=== PATIENT | female | born 1950 | race Two or more races ===

== ENCOUNTER 2016-07-27 18:26 | Emergency (ER) | payer SELFPAY ==
--- NOTE | 2016-07-27 18:53 | ER Document Report ---
ED Medical Screen (RME) - General Stated Complaint: BACK PAIN,LOST CONTROL OF BLADDER Time seen by provider: 18:51 Mode of Arrival: Wheelchair Information source: Relative - daughter Notes: 65-year-old female with Parkinson's and adrenal fatigue syndrome from [place] who has a history of back pain and recent epidural on 07-22-16 was brought in by her daughter because she needs a Huerta catheter placed because she is not emptying her bladder completely. She is supposed to go back on a plane 07-28-16 and is flying with her daughter back to [place] for emergency back surgery, lumbar decompression. She was walking when she came from [place] and now she has weakness in the legs can't stand can't stand upright constant urge to urinate. Her daughter states that as soon as she gets off the plane tomorrow in [place] she will be taken by ambulance immediately to the emergency room. The frequent urination is pre-existing condition but it is increased to 8 times an hour. No fever. Physical Exam - Vital signs Vitals: Temp Pulse 99.6 F 88 07/27/16 18:44 07/27/16 18:44 Course - Vital Signs Vital signs: Temp Pulse Resp BP Pulse Ox 99.6 F 88 16 135/95 H 95 07/27/16 18:44 07/27/16 18:44 07/27/16 18:58 07/27/16 18:58 07/27/16 18:58
[2016-07-27 19:58] LABS: ABSOLUTE EOSINOPHILS # (AUTO) 0.2 10^3/uL (0.0-0.6); ABSOLUTE LYMPHOCYTES (AUTO) 1.7 10^3/uL (0.5-4.7); ABSOLUTE MONOCYTES (AUTO) 0.7 10^3/uL (0.1-1.4); ABSOLUTE NEUT (AUTO) 5.6 10^3/uL (1.7-8.2); BASOPHILS % (AUTO) 0.5 % (0-2); HEMATOCRIT 41.5 % (36.0-47.0); HEMOGLOBIN 13.7 g/dL (12.0-15.5); HGB HCT DIFFERENCE -0.4; LYMPHOCYTES % (AUTO) 20.6 % (13-45); MEAN CORPUSCULAR HEMOGLOBIN 28.8 pg (27.0-33.4); MEAN CORPUSCULAR VOLUME 87 fl (80-97); MONOCYTES % (AUTO) 8.1 % (3-13); RED BLOOD COUNT 4.75 10^6/uL (3.72-5.28); RED CELL DISTRIBUTION WIDTH 13.9 % (11.5-14.0); SEGMENTED NEUTROPHILS % (AUTO) 68.8 % (42-78); WHITE BLOOD COUNT 8.1 10^3/uL (4.0-10.5)
[2016-07-27 20:04] LABS: APPEARANCE,URINE CLEAR; BILIRUBIN,URINE NEGATIVE (NEGATIVE); GLUCOSE, URINE NEGATIVE (NEGATIVE); KETONES,URINE NEGATIVE (NEGATIVE); LEUKOCYTE ESTERASE,URINE NEGATIVE (NEGATIVE); NITRITE,URINE NEGATIVE (NEGATIVE); PROTEIN,URINE NEGATIVE (NEGATIVE); UROBILINOGEN,URINE NEGATIVE mg/dL (<2.0)
[2016-07-27 20:09] LABS: ALANINE AMINOTRANSFERASE 75 U/L (9-52); ALBUMIN 4.7 g/dL (3.5-5.0); ALKALINE PHOSPHATASE 90 U/L (38-126); ANION GAP 10 (5-19); ASPARTATE AMINO TRANSFERASE 45 U/L (14-36); BILIRUBIN,TOTAL 0.9 mg/dL (0.2-1.3); BLOOD UREA NITROGEN 20 mg/dL (7-20); CALCIUM 9.7 mg/dL (8.4-10.2); CARBON DIOXIDE 26 mmol/L (22-30); CHLORIDE 104 mmol/L (98-107); CREATININE RESULT 0.77 mg/dL (0.52-1.25); GLUCOSE 92 mg/dL (75-110); POTASSIUM 4.9 mmol/L (3.6-5.0); SODIUM 140.4 mmol/L (137-145); TOTAL PROTEIN 7.4 g/dL (6.3-8.2)
[2016-07-27 20:13] LABS: URINE SPECIFIC GRAVITY 1.008
--- NOTE | 2016-07-27 20:28 | ER Document Report ---
ED Neck/Back Problem - General Chief Complaint: Back pain, weakness, loss of bladder Stated Complaint: BACK PAIN,LOST CONTROL OF BLADDER Time seen by provider: 20:26 Mode of Arrival: Wheelchair Information source: Patient, Relative - Daughter TRAVEL OUTSIDE OF THE [place] IN LAST 30 DAYS: Yes COUNTRY TRAVELED TO/FROM: [place] - HPI Patient complains to provider of: Pain, Lower back Onset: Other - Chronic Onset: Chronic Timing: Waxing and waning, Worse Quality of pain: Achy Severity: Moderate Pain Level: 4 Recent injury: No Associated symptoms: Incontinence, Like prior neck/back pain, Numbness/tingling , Radiation to leg Exacerbated by: Movement of trunk Relieved by: Nothing Similar symptoms previously: Yes Recently seen / treated by doctor: No Notes: Patient is a 65-year-old female with a history of osteoarthritis, lumbar discopathy and Parkinson's disease, who presents to the emergency room with her daughter for complaints of worsening low back pain with numbness and tingling sensation below the knees bilaterally and urinary incontinence, patient is visiting from [place], daughter reports that she has made arrangements to have patient fly back to [place] tomorrow and meet with a neurosurgeon for likely lumbar decompression, her only request is that patient have a Huerta catheter placed because of her urinary incontinence and because she will be on 3 separate flights to return home from [place] to [place] tomorrow, patient has no fever, no injury, no nausea or vomiting Past Medical History - General Information source: Relative - daughter - Social History Smoking Status: Never Smoker Family History: Reviewed & Not Pertinent Patient has suicidal ideation: No Patient has homicidal ideation: No Renal/ Medical History: Denies: Hx Peritoneal Dialysis Review of Systems - Review of Systems Constitutional: No symptoms reported EENT: No symptoms reported Cardiovascular: No symptoms reported Respiratory: No symptoms reported Gastrointestinal: No symptoms reported Genitourinary: See HPI Female Genitourinary: No symptoms reported Musculoskeletal: See HPI Skin: No symptoms reported Hematologic/Lymphatic: No symptoms reported Neurological/Psychological: See HPI -: Yes All other systems reviewed and negative Physical Exam - Vital signs Vitals: Temp Pulse 99.6 F 88 07/27/16 18:44 07/27/16 18:44 Interpretation: Normal - General General appearance: Alert In distress: Moderate - Appears in pain - HEENT Head: Normocephalic, Atraumatic Eyes: Normal Pupils: PERRL - Respiratory Respiratory status: No respiratory distress Chest status: Nontender Breath sounds: Normal Chest palpation: Normal - Cardiovascular Rhythm: Regular Heart sounds: Normal auscultation Murmur: No - Abdominal Inspection: Normal Distension: No distension Bowel sounds: Normal Tenderness: Nontender Organomegaly: No organomegaly - Back Back: Tender - Paraspinal lumbar tenderness, also midline tenderness - Extremities General upper extremity: Normal inspection, Nontender, Normal color, Normal ROM , Normal temperature General lower extremity: Normal inspection, Nontender, Normal color, Normal ROM , Normal temperature. No: Zaida's sign Notes: Patient reports decreased sensation to bilateral lower extremities from the knees down, 2+ DP pulses bilaterally - Neurological Neuro grossly intact: Yes Cognition: Normal Orientation: AAOx4 Lonny Coma Scale Eye Opening: Spontaneous Lonny Coma Scale Verbal: Oriented Lonny Coma Scale Motor: Obeys Commands Lonny Coma Scale Total: 15 Speech: Normal Additional motor exam normals: Involuntary movements - Consistent with Parkinson disease - Psychological Associated symptoms: Normal affect, Normal mood - Skin Skin Temperature: Warm Skin Moisture: Dry Skin Color: Normal Course - Re-evaluation Re-evalutation: 07/28/16 05:30 I discussed treatment plan options with patient and daughter at bedside, patient and daughter are adamant that she only came to the emergency room to have a Huerta catheter placed so that she could fly home to [place] in the morning and visit with her neurosurgeon to possibly get a lumbar decompression surgery, I offered to provide patient with medication in the emergency room, as well as talk to a neurosurgeon locally as opposed to having patient placed on 3 flights to return to [place], however patient and daughter were both adamant that given patient's healthcare, and the amount of money that they've spent on flights to [place] tomorrow that they really wish for her to just have the Huerta catheter placed and have her discharged so that she can go home to [place] and get taken care of, I have a lengthy discussion with patient and daughter at bedside, I advised them to return to the nearest emergency room if patient's symptoms should worsen in any way or they desired to get help locally, or if patient is unable to fly to [place] in the morning as planned, a Huerta catheter was placed, patient and daughter were quite appreciative of the care they received in the emergency room, and patient was discharged with instructions to return at any time should she require any further assistance, patient and daughter acknowledge understanding and agreement with this plan - Vital Signs Vital signs: Temp Pulse Resp BP Pulse Ox 98.0 F 86 18 140/90 H 91 L 07/27/16 18:47 07/27/16 20:49 07/27/16 20:43 07/27/16 20:51 07/27/16 20:49 - Laboratory Result Diagrams: 07/27/16 19:15 07/27/16 19:15 Laboratory results interpreted by me: 07/27/16 19:15 AST 45 H ALT 75 H Discharge - Discharge Clinical Impression: Low back pain Qualifiers: Chronicity: chronic Back pain laterality: bilateral Sciatica presence: with sciatica Sciatica laterality: bilateral sciatica Qualified Code(s): M54.42 - Lumbago with sciatica, left side Condition: Stable Disposition: HOME, SELF-CARE Instructions: Low Back Pain ([facility]) Additional Instructions: Follow up with your primary care provider and surgeon immediately upon arrival in [place]. Return to the nearest emergency room immediately if symptoms worsen or any additional concerns. Prescriptions: Lorazepam [Ativan 1 mg Tablet] 1 mg PO QHS #10 tab
[2016-07-27 21:06] VITALS: BP 140/90
== END 2016-07-27 21:04 | disposition home or self-care (01) ==
LOC: ER 18:26
DX: M54.42 Lumbago with sciatica, left side (principal); M54.9 Dorsalgia, unspecified; R53.1 Weakness
CPT/HCPCS: 36415; 51702; 80053; 81001; 85025; 87086; 99283